=== PATIENT | male | born 2000 | race African-American/Black ===

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

== ENCOUNTER 2020-08-13 08:26 | Emergency (ER) | payer SELFPAY ==
--- NOTE | ~2020-08-13 | XR_ITS ---
EXAMINATION: XR foot RT min 3V DATE: 08/13/2020 08:55 INDICATION: Right foot pain TECHNIQUE: Dorsoplantar, lateral, and 2 oblique views of the right foot were obtained. COMPARISON: None. FINDINGS: There is no fracture, dislocation, or subluxation. The bones, soft tissues, and joint space s are normal. IMPRESSION: 1. No acute osseous abnormality. Reviewed, dictated and finalized at location A. [facility] ENGINEER
[2020-08-13 08:30] VITALS: BP 118/83; PULSE 66; RESP 16; TEMP 36.4; O2SAT 100
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
[2020-08-13] MEDS: IBUPROFEN 600 MG TABLET PO (08:54)
== END 2020-08-13 09:50 | disposition home or self-care (01) ==
PROVIDERS: Emergency Provider Emergency Medicine
DX: S93.501A Unspecified sprain of right great toe, initial encounter (principal); F17.200 Nicotine dependence, unspecified, uncomplicated; Y04.0XXA Assault by unarmed brawl or fight, initial encounter
CPT/HCPCS: 73630; 99283; A9270

== ENCOUNTER 2021-01-11 16:34 | Emergency (ER) | payer SELFPAY | END 2021-01-11 16:41 | disposition left against medical advice (07) | LOC: EXPCOLL 16:36 | PROVIDERS: Emergency Provider Nurse Practitioner | DX: Z53.21 Procedure and treatment not carried out due to patient leaving prior to being seen by health care provider (principal) | CPT/HCPCS: 99199 ==

== ENCOUNTER 2025-07-20 10:01 | Emergency (ER) | payer SELFPAY ==
[2025-07-20 10:07] VITALS: BP 117/81; PULSE 104; RESP 18; TEMP 36.7; O2SAT 100
[2025-07-20 11:28] LABS: Trichomonas Vag PCR NOT DETECTED (NOT DETECTE)
[2025-07-20] MEDS: DOXYCYCLINE HYCLATE 100 MG TABLET PO (11:31)
[2025-07-20] MEDS: cefTRIAXone 1 GM VIAL 0.5 GM IM (11:31)
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
== END 2025-07-20 11:44 | disposition home or self-care (01) ==
LOC: ANHED 11:29
PROVIDERS: Emergency Provider Emergency Medicine
DX: Z20.2 Contact with and (suspected) exposure to infections with a predominantly sexual mode of transmission (principal); F17.200 Nicotine dependence, unspecified, uncomplicated
CPT/HCPCS: 87491; 87591; 87661; 96372; 99283; A9270; J0696